=== PATIENT | female | born 1985 | race American Indian/Alaskan Native ===

== ENCOUNTER 2016-08-16 06:05 | Day surgery (SDC) | payer MEDICAID ==
--- NOTE | 2016-08-15 17:21 | History and Physical Report ---
History of Present Illness Date of examination: 08/16/16 Chief complaint: Unwanted Fertility History of present illness: Pt is a 30 year old female who presents for surgical sterilization. She is aware of long-acting reversible methods of contraception and she desires to proceed. Past History Past Medical History: hematologic disorders (Sickle Cell Trait ) Past Surgical History: no surgical history Family/Genetic History: cancer Social history: no significant social history - Obstetrical History : 2 Medications and Allergies Allergies Allergy/AdvReac Type Severity Reaction Status Date / Time No Known Allergies Allergy Verified 08/11/16 15:25 Home Medications Medication Instructions Recorded Confirmed Last Taken Type No Known Home Medications [No 08/11/16 08/11/16 Unknown History Reported Home Medications] Active Meds: Active Medications Famotidine (Pepcid) 20 mg PO PREOP NR Sodium Chloride (Nacl 0.9% 1000 Ml) 1,000 mls @ 75 mls/hr IV DIRECT KEYONA Metoclopramide HCl (Reglan) 10 mg PO PREOP NR Midazolam HCl (Versed) 2 mg IV PREOP NR Stop: 08/16/16 23:59 Review of Systems All systems: negative - Physical Exam Breasts: Positive: deferred Cardiovascular: Regular rate Lungs: Positive: Clear to auscultation Abdomen: Positive: soft Extremities: Positive: normal Results All other labs normal. Assessment and Plan A: Unwanted Fertility Sickle Cell Trait P: Proceed with laparoscopic bilateral tubal ligation and other indicated procedures.
[~2016-08-16 06:05] MED LIST: ANCEF/STERILE WATER 2 GM/20 ML 2 GM/20 ML SYRINGE IV NR; MARCAINE 0.5% INFILTRATI ONE; NACL 0.9% 1000 ML 1,000 ML IV SCH; NACL 0.9% IR ONE; PEPCID PO NR; REGLAN PO NR; VERSED IV NR
[2016-08-16] MEDS ORDERED: NACL BACTERIOSTATIC INFILTRATI ONE (06:20)
[2016-08-16] MEDS ORDERED: DIPRIVAN 10 MG/ML IV ONE (06:33)
[2016-08-16] MEDS ORDERED: DECADRON ONE (06:34)
[2016-08-16] MEDS ORDERED: DILAUDID ONE (06:34)
[2016-08-16] MEDS ORDERED: XYLOCAINE MPF 2% ONE (06:34)
[2016-08-16] MEDS ORDERED: ZEMURON IV ONE (06:34)
[2016-08-16] MEDS ORDERED: ZOFRAN ONE (06:34)
--- NOTE | 2016-08-16 06:46 | Anesthesia Consultation ---
Anesthesia Consult and Med Hx Date of service: 08/16/16 - Airway Anesthetic Teeth Evaluation: Good ROM Head & Neck: Adequate Mental/Hyoid Distance: Adequate Mallampati Class: Class II Intubation Access Assessment: Probably Good - Pulmonary Exam CTA: Yes - Cardiac Exam Cardiac Exam: RRR - Pre-Operative Health Status ASA Pre-Surgery Classification: ASA1 Proposed Anesthetic Plan: General - Pulmonary Hx Asthma: No COPD: No Hx Pneumonia: No - Cardiovascular System Hx Hypertension: No - Central Nervous System Hx Seizures: No Hx Psychiatric Problems: No - Endocrine Hx Renal Disease: No Hx End Stage Renal Disease: No Hx Hypothyroidism: No Hx Hyperthyroidism: No - Hematic Hx Anemia: No Hx Sickle Cell Disease: Yes (trait only) - Other Systems Hx Alcohol Use: No Hx Cancer: No
[2016-08-16] MEDS ORDERED: ZOFRAN IV PRN (06:54)
[2016-08-16] MEDS ORDERED: DILAUDID IV PRN (06:54)
[2016-08-16] MEDS ORDERED: NORCO 5/325 PO PRN (06:54)
[2016-08-16 07:05] LABS: Hematocrit 34.8 % (30.3-42.9); Hemoglobin 11.6 gm/dl (10.1-14.3); Mean Corpuscular HGB Conc 33 % (30-34); Mean Corpuscular Hemoglobin 29 pg (28-32); Mean Corpuscular Volume 87 fl (79-97); Platelet Count 226 K/mm3 (140-440); Red Blood Count 4.02 M/mm3 (3.65-5.03); Red Cell Distribution Width 14.2 % (13.2-15.2); White Blood Count 5.4 K/mm3 (4.5-11.0)
[2016-08-16] MEDS ORDERED: MARCAINE 0.5% 30 ML INFILTRATI ONE (07:14)
--- NOTE | 2016-08-16 07:55 | Anesthesia Day of Surgery ---
Anesthesia Day of Surgery - Day of Surgery Patient Examined: Yes Patient H&P Reviewed: Yes Patient is NPO: Yes
--- NOTE | 2016-08-16 07:56 | Post Anesthesia Evaluation ---
- Post Anesthesia Evaluation Patient Participated: Yes Airway Patent: Yes Stable Respiratory Function: Yes Nausea/Vomiting: No Temp > 96.8F: Yes Pain Manageable: Yes Adequeate Hydration: Yes Anesthesia Complications: No Block Receding Appropriately: Not Applicable Patient on Ventilator: No
[2016-08-16] MEDS ORDERED: TORADOL ONE (08:26)
[2016-08-16] MEDS ORDERED: MARCAINE 0.5% INFILTRATI ONE (08:31)
[2016-08-16] MEDS ORDERED: NACL 0.9% IR ONE ×2 (08:33→08:37)
[2016-08-16] MEDS ORDERED: SILVER NITRATE TP ONE ×2 (08:40→08:43)
--- NOTE | 2016-08-16 08:59 | Operative Report ---
Operative Report Operative Report: Date of procedure: August 16, 2016 Preoperative diagnosis: Multiparity desires permanent sterilization Postoperative diagnosis: Same Procedure: Laparoscopic bilateral tubal ligation via Filshie clip method Surgeon: Rosemarie Hernandes M.D. Anesthesia: General endotracheal anesthesia Findings: 1) Boggy retroverted uterus that sounded to 9 cm. 2) Normal appearing ovaries and tubes Estimated blood loss: 25 mL IV fluid: 300 mL Urine output: 50 mL clear prior to the procedure Specimens: None Complications: None. Counts correct 2 Disposition: Stable to PACU Indications for procedure: Patient is a 30-year-old 2 para 2 who desires permanent sterilization. She is aware of long-acting reversible contraceptives and desires to proceed. Operation in detail: After the risks, benefits, alternatives and complications of the procedure were explained to the patient, she gave informed consent for the procedure. She was subsequently taken to the operating room with her IV noted to be running and placed in the dorsal supine position with sequential compression devices functioning. General endotracheal anesthesia was then induced without difficulty. The patient was then placed in placement dorsal lithotomy position and prepped and draped in normal sterile fashion. An exam under anesthesia was then performed yielding a mobile retroverted uterus. A timeout was then performed. The bladder was then drained of urine yielding 50 mL of clear urine. An open sided speculum was placed into the vagina for visualization of the cervix. A single-tooth tenaculum was placed on the anterior lip of the cervix for traction. The uterus was then sounded to 9 cm. A Hulka uterine manipulator was then placed. The single-tooth tenaculum and speculum were then removed from the vagina. The surgeon's gloves were then changed. Attention was then turned to entry into the abdominal cavity. A 5 mm infraumbilical incision was made with an 11 blade. The skin was grasped on either side of the umbilicus with towel clamps and tented up. The long Veres needle was placed into the peritoneal cavity, confirmed with a saline drop test with some difficulty. The abdomen was then insufflated with CO2 gas to a pressure of 15 mmHg. A 5 mm Visiport trocar was then placed. An anatomic survey was then performed with findings as indicated above. A second trocar site was created 4 cm superior to the pubic symphysis in the midline measuring 1 cm. An 8 mm trocar was then placed under direct visualization. The patient was placed in Trendelenburg position. The uterus was elevated, and two Filshie clips were then placed across the right and left fallopian tubes at the level of the ampullae. At this time, all instruments were removed from the abdominal cavity. The pneumoperitoneum was released. The incisions were then infiltrated with quarter percent Marcaine. The incisions were then reapproximated with 4-0 Monocryl in a subcuticular fashion. They were then covered with Steri-Strips, Telfa and Tegaderm dressings. All instruments were then removed from the vagina. At this time the procedure was ended. The patient was replaced into the dorsal supine position and extubated without difficulty. She was subsequently taken to the PACU in stable condition. All instrument, needle and lap counts were correct 2.
--- NOTE | 2016-08-16 08:59 | Short Stay Summary ---
Short Stay Documentation Date of service: 08/16/16 - History H&P: dictated Social history: no significant social history - Allergies and Medications Current Medications: Allergies No Known Allergies Allergy (Verified 08/11/16 15:25) Home Medications Medication Instructions Recorded Confirmed Last Taken Type No Known Home Medications [No 08/11/16 08/11/16 Unknown History Reported Home Medications] Active Medications Acetaminophen/Hydrocodone Bitart ([place] 5/325) 2 each PO ONCE PRN PRN Reason: Pain, Moderate (4-6) Stop: 08/16/16 16:00 Famotidine (Pepcid) 20 mg PO PREOP NR Stop: 08/16/16 23:00 Last Admin: 08/16/16 06:46 Dose: 20 mg Hydromorphone HCl (Dilaudid) 0.5 mg IV Q10MIN PRN PRN Reason: Pain , Severe (7-10) Stop: 08/16/16 16:00 Sodium Chloride (Nacl 0.9% 1000 Ml) 1,000 mls @ 75 mls/hr IV DIRECT KEYONA Last Admin: 08/16/16 06:50 Dose: 75 mls/hr Cefazolin Sodium (Ancef/Sterile Water 2 Gm/20 Ml) 2 gm in 20 mls @ 80 mls/hr IV PREOP NR PRN Reason: Protocol Stop: 08/16/16 23:01 Metoclopramide HCl (Reglan) 10 mg PO PREOP NR Stop: 08/16/16 23:00 Last Admin: 08/16/16 06:46 Dose: 10 mg Midazolam HCl (Versed) 2 mg IV PREOP NR Stop: 08/16/16 23:59 Last Admin: 08/16/16 07:25 Dose: 2 mg Ondansetron HCl (Zofran) 4 mg IV ONCE PRN PRN Reason: Nausea And Vomiting Stop: 08/16/16 16:00 - Physical exam Breasts: deferred - Brief post op/procedure progress note Date of procedure: 08/16/16 Pre-op diagnosis: Unwanted fertility Post-op diagnosis: same Procedure: Laparoscopic bilateral tubal ligation via Filshie clip method Anesthesia: GETA Findings: 1) Boggy retroverted uterus that sounded to 9 cm. 2) Normal appearing ovaries and tubes Surgeon: KYLE ELIAS Estimated blood loss: minimal (25 mL) Pathology: none Condition: stable - Hospital course Hospital course: Pt underwent laparoscopic bilateral tubal ligation which she tolerated well. She was observed in the PACU until she met discharge criteria. - Disposition Condition at discharge: Stable Disposition: DISCHARGED TO HOME OR SELFCARE - Discharge Diagnoses (1) Encounter for sterilization Status: Acute (2) Obesity Status: Acute Qualifiers: Obesity type: due to excess calories Obesity severity: non-morbid Qualified Code(s): E66.09 - Other obesity due to excess calories Short Stay Discharge Plan Activity: other (Nothing in vagina x 4 wks ) Weight Bearing Status: Full Weight Bearing Diet: regular Wound: keep clean and dry, remove dressing (on day 2 after surgery ) Follow up with: PRIMARY CAREMD [Primary Care Provider] - 7 Days KYLE ELIAS MD [Staff Physician] - 08/30/16 (incision check. Please call the office to make the appt. ) Prescriptions: Ibuprofen [Motrin] 800 mg PO Q8HR PRN #30 tablet PRN Reason: Pain oxyCODONE /ACETAMINOPHEN [Percocet 5/325] 1 tab PO Q6HR PRN #30 tablet PRN Reason: Pain
[2016-08-16] MEDS ORDERED: DEMEROL IV PRN (09:46)
[2016-08-16] MEDS ORDERED: DEMEROL ONE (09:47)
[2016-08-16 11:42] VITALS: BP 108/65
== END 2016-08-16 11:35 | disposition home or self-care (01) ==
LOC: OR 06:05
PROVIDERS: ATTEND Obstetrics & Gynecology
DX: Z30.2 Encounter for sterilization (principal); Z64.1 Problems related to multiparity
CPT/HCPCS: 36415; 58671; 81025; 85027; 86850; 86900; 86901; A4264; J0690; J1100; J1170; J1885; J2175; J2250; J2405; J2704; J7030